=== PATIENT | male | born 1970 | race Caucasian/White ===

== ENCOUNTER 2017-01-02 22:52 | Emergency (ER) | payer SELFPAY ==
[~2017-01-02] VITALS: Ht 162.6 cm; Wt 68.0 kg
[2017-01-02] MEDS ORDERED: SODIUM CHLORIDE 0.9% 1,000 ML IV ONE (23:16)
[2017-01-02] MEDS ORDERED: FOLIC ACID 1 MG, THIAMINE HCL 100 MG, MVI, ADULT NO.1 10 ML in DEXTROSE 5% WATER 1,000 ML IV ONE ×4 (23:30)
[2017-01-02 23:50] LABS: BASOPHILS % 1.5 % (0.0-2.0); EOSINOPHILS % 6.5 % (0.0-5.0); HEMATOCRIT. 43.5 % (42.0-52.0); LYMPHOCYTES % 48.3 % (20.0-50.0); MEAN CORPUSCULAR HEMOGLOBIN 24.5 pg (28.0-32.0); MEAN PLATELET VOLUME 7.8 fl (7.4-10.4); MONOCYTES % 8.6 % (2.0-8.0); NEUTROPHILS % 35.1 % (40.0-76.0); PLATELET 331 x1000/uL (130-400); RED BLOOD CELL COUNT 5.73 mill/uL (4.7-6.1); RED CELL DISTRIBUTION WIDTH 20.3 % (11.6-14.6)
[2017-01-03 00:18] LABS: CARBON DIOXIDE 29 mEq/L (21-32); CHLORIDE 110 mEq/L (98-107)
[2017-01-03 00:21] LABS: ETHANOL BLOOD 306 mg/dL
[2017-01-03] MEDS ORDERED: LORAZEPAM 1MG TABLET PO ONE (05:00)
[2017-01-03] MEDS ORDERED: LORAZEPAM 1MG TABLET ONE (05:18)
[2017-01-03 08:10] VITALS: BP 115/72
== END 2017-01-03 08:15 | disposition home or self-care (01) ==
LOC: ER 22:55
DX: F10.129 Alcohol abuse with intoxication, unspecified (principal); Y90.8 Blood alcohol level of 240 mg/100 ml or more
CPT/HCPCS: 36415; 80053; 85025; 96365; 96366; 99285; G0482; J3411; J3490; J7030; J7070; Z7610